=== PATIENT | male | born 1950 | race Caucasian/White ===

== ENCOUNTER → 2017-10-17 | Outpatient (CLI) | payer MEDICARE, OTHER | LOC: LAB SRC 09:00 → LAB SHORT 09:00 | DX: R19.7 Diarrhea, unspecified (principal) | CPT/HCPCS: 87015; 87045; 87046; 87899 ==

== ENCOUNTER → 2017-10-24 | Outpatient (CLI) | payer MEDICARE, OTHER | LOC: LAB SHORT 08:30 → LAB SRC 08:30 | DX: R19.7 Diarrhea, unspecified (principal) | CPT/HCPCS: 87177; 87209 ==

== ENCOUNTER 2018-04-27 06:05 | Day surgery (SDC) | payer MEDICARE, OTHER ==
[~2018-04-27] VITALS: Ht 175.3 cm; Wt 69.4 kg
[~2018-04-27 06:05] MED LIST: Saw Palmetto160 MG PO
--- NOTE | 2018-04-27 07:04 | NUR ---
Ambulatory in Day Surgery. Surgical site prepped with 2% Chlorhexidine cloth wipe. History, Chart, Medications and Allergies reviewed before start of procedure. Lungs clear T/O to Auscultation. Patient confirms NPO status and agrees with scheduled surgery. Pre-Op teaching done. Pt verbalizes understanding. Patient reports completing Chlorhexadine shower X2 prior to admission to hospital.
--- NOTE | 2018-04-27 10:40 | NUR ---
04/27/18 1040 Sonia Mera ALL COUNTS CORRECT.
--- NOTE | 2018-04-27 11:57 | NUR ---
PT ARRIVED TO ROOM AT 1125. PT ALERT AND ORIENTED UPON ARRIVAL TO THE ROOM. DENIES PAIN. UNABLE TO MOVE LOWER EXTREMITIES R/T SPINAL ANESTHESIA. CAP REFILL AND PULSES WNL TO BLE. DRESSING C/D/I. VS STABLE, BP LOW PT DENIES DIZZINESS, SOB OR CHEST PAIN. WILL CONTINUE TO MONITOR.
--- NOTE | 2018-04-27 15:04 | NUR ---
STRAIGHT CATH PT HAS HX OF URINARY RETENSION R/T ENLARGED PROSTATE. PT DENIED FEELING THE URGE TO VOID, BLADDER SCAN DONE SINCE PT HAD NOT VOIDED POST OP. BLADDER SCAN SHOWED 542ML IN THE BLADDER. STRAIGHT CATH COMPLETED WITH 800ML OF URINE OUT. WILL CONTINUE TO MONITOR.
--- NOTE | 2018-04-27 19:38 | NUR ---
SHIFT SUMMARY PAIN HAS BEEN MANAGED WITH PO PAIN MEDICATION POST OP. HE HAS BEEN A 1 ASSIST WHEN OOB. PT TOLERATING PO WELL. VSS. REPORT GIVEN TO ELSY JOHNSON.
[2018-04-28 05:27] LABS: BASOPHILS ABSOLUTE AUTO 0.03 K/mm3 (0.00-0.23); BASOPHILS PERCENT AUTO 0 % (0-2); EOSINOPHILS ABSOLUTE AUTO 0.01 K/mm3 (0.00-0.68); EOSINOPHILS PERCENT AUTO 0 % (0-6); Hematocrit 45.9 % (37.0-53.0); IMMATURE GRAN ABSOLUTE AUTO 0.05 K/mm3 (0.00-0.10); IMMATURE GRAN PERCENT AUTO 0 % (0-1); LYMPHOCYTES ABSOLUTE AUTO 1.87 K/mm3 (0.84-5.20); LYMPHOCYTES PERCENT AUTO 12 % (21-46); MONOCYTES PERCENT AUTO 10 % (4-13); Mean Corpuscular HGB Conc 32.7 g/dL (31.5-36.5); Mean Corpuscular Volume 95 fL (80-100); Mean Platelet Volume 10.7 fL (9.1-12.4); NEUTROPHILS ABSOLUTE AUTO 11.66 K/mm3 (1.96-9.15); NEUTROPHILS PERCENT AUTO 77 % (41-73); Platelet Count 197 K/mm3 (150-400); RDW Coefficient Variation 12.4 % (11.7-14.2); RDW Standard Deviation 43.3 fL (35.1-46.3); Red Blood Cell Count 4.84 M/mm3 (4.30-5.90); White Blood Cell Count 15.12 K/mm3 (4.00-11.30)
[2018-04-28 05:56] LABS: Anion Gap 7 mmol/L (6-16); Blood Urea Nitrogen 25 mg/dL (8-24); Bun/Creatinine Ratio 26.4 (12.0-20.0); CO2, Blood 27 mmol/L (21-32); Calcium, Blood 8.6 mg/dL (8.5-10.1); Chloride, Blood 106 mmol/L (98-108); Creatinine, Blood 0.95 mg/dL (0.60-1.20); Glomerular Filtration Rate >60 (60-); Glucose, Blood 99 mg/dL (70-99); Magnesium, Blood 2.2 mg/dL (1.6-2.4); Potassium, Blood 4.1 mmol/L (3.5-5.5); Sodium, Blood 140 mmol/L (136-145)
--- NOTE | 2018-04-28 06:38 | NUR ---
SUMMARY: POD [address] CHAMBERS. VSS, AFEBRILE, PAIN WELL CONTROLLED WITH 10MG ROXICODONE X3 THIS SHIFT. PT VOIDING CLEAR, YELLOW, URINE AND TOLERATING REG DIET WITH MINIMAL ACID REFLUX. PT PASSING GAS THIS MORNING. ANTICIPATE PT/OT AND POSSIBLE DC HOME. LABORATORY SUPERVISOR CONSULT FOR EVALUATION OF NEED UPON DC HOME.
--- NOTE | 2018-04-28 09:34 | NUR ---
PEDAL PULSES REASSESSED AT THIS TIME. PULSES FEEL EQUAL BILATERALLY.
[2018-04-28] MEDS ORDERED: ACET500 PO (10:04)
[2018-04-28] MEDS ORDERED: ASPI325EC PO (10:06)
[2018-04-28] MEDS ORDERED: OXYC5 PO (10:07)
--- NOTE | 2018-04-28 11:45 | NUR ---
DISCHARGE PT PROVIDED WITH WRITTEN AND VERBAL DISCHARGE INSTRUCTIONS BY JOSE ANGEL JOHNSON. PT WAS SENT HOME WITH EXTRA ZOEY HOSE, DRESSINGS AND SCRIPT FOR PAIN MEDICATION. PT WAS ESCORTED OUT IN W/C BY CHELSY SMITH AT 1120.
== END 2018-04-28 11:19 | disposition home or self-care (01) ==
LOC: ORSCMMR 06:05 → ORD 07:30 → SURS 12:04 → ORSCMMR 04-28 11:19
PROVIDERS: Orthopaedic Surgery
PROC: 0SRC0J9 Replacement of Right Knee Joint with Synthetic Substitute, Cemented, Open Approach (ICD-10-PCS; principal; 2018-04-27 07:30)
DX: M17.11 Unilateral primary osteoarthritis, right knee (principal); Q85.00 Neurofibromatosis, unspecified; Z87.891 Personal history of nicotine dependence
CPT/HCPCS: 36415; 73560-RT; 80048; 83735; 85025; 88300; 97110; 97116; 97162; 97530; C1713; C1776; J0171; J0690; J0735; J1100; J1170; J1885; J2250; J2405; J2795; J3010; J7120